=== PATIENT | female | born 1940 | race Two or more races ===

== ENCOUNTER 2022-06-05 16:58 | Emergency (ER) | payer OTHER ==
[~2022-06-05] VITALS: Ht 167.6 cm; Wt 86.2 kg
[~2022-06-05 16:58] MED LIST: ATOR20TA PO; DULO60EC1 PO; ENAL10TA34; ESOM40EC PO; EZET10TA14; EZET1TAB28 PO; FERR-15 PO; ISOS20TA13 PO; LAMO100T PO; LEVO250T3; METF-938 PO; METO25TA PO; PANT40EC; PIOG15TA48 PO; ZOLP5TAB1 PO; [UNRECOGNIZED DRUG - CODE] PO; [UNRECOGNIZED DRUG - CODE] PO
--- NOTE | 2022-06-05 16:59 | NUR ---
1647-PT [facility] 06.
[2022-06-05] MEDS ORDERED: ACETAMINOPHEN EXTRA STRENGTH 500 MG TAB PO ONE ×2 (17:00→18:10)
[2022-06-05 17:01] VITALS: BP 140/66
--- NOTE | 2022-06-05 17:08 | NUR ---
PT TAKEN TO [facility]
--- NOTE | 2022-06-05 17:21 | NUR ---
PT BROUGHT BACK FROM [facility]
--- NOTE | 2022-06-05 17:50 | NUR ---
82YO FEMALE PT BIBA FROM [facility] C/O FALL. PER [facility], PT FELL WHILE GETTING UP FROM CHAIR . UPON THEIR ARRIVAL [facility] REPORTS PT AAOX3 WITH EPISODES OF CONFUSION- AT BASELINE. PT C/O 08/08 HEAD PAIN AND BODY ACHES . NO VISIBLE INJURY NOTED TO HEAD OR BODY. PT DENIES LOC OR SYNCOPE AND STATES OCCASIONAL LOSS OF LEG MOBILITY . PT AMBULATORY USING WHEELCHAIR. DENIES CHEST PAIN , N/V/D OR SOB. PT AAOX3 WITH SOME CONFUSION AND DISORIENTATION DURING ASSESSMENT. RESPIRATIONS EVEN AND UNLABORED. PT ON MONITOR, BED AT LOWEST POSITION, BED RAILS UP X2. HX dm2, htn, hld allergy: erythromycin med: plavix
--- NOTE | 2022-06-05 18:45 | NUR ---
ATTEMPT TO CONTACT FIGUEROA SIDDIQUI X3 . NO ANSWER. MESSAGE LEFT
--- NOTE | 2022-06-05 18:46 | NUR ---
CALLED PERSON TO NOTIFY "KARIN SHOEMAKER". GRANDDAUGHTER STATES PERSON "PASSED" AND STATES SHE HAS NO RELATION TO PT
--- NOTE | 2022-06-05 19:15 | NUR ---
REPORT GIVEN TO SERGOI TAI. ALL QUESTIONS ANSWERED. TRANSFER OF CARE AT THIS TIME
--- NOTE | 2022-06-05 19:34 | NUR ---
pt appears to be resting with eyes cloed, opens to touch. equal rise and fall of chest wall. pt on alarm security or surveillance monitor. all needs met at this time. bed locked in lowest position, side rails x2 for safety.
--- NOTE | 2022-06-05 20:48 | NUR ---
pt is awake and alert. all needs met at this time. bed locked in lowest position. side rails x2 for safety.
--- NOTE | 2022-06-05 22:15 | NUR ---
pt appears to be resting with eyes closed. opens to sound. equal rise and fall of chest wall. pt continues on drapery sewer hand. all needs met at this time. bed locked in lowest position, side rails x2 for safety.
--- NOTE | 2022-06-05 22:18 | NUR ---
pt given iced water per request.
--- NOTE | 2022-06-06 00:40 | NUR ---
pt is awake and alert. pt is talking to self. states "oh im ok". all needs met at this time. bed locked in lowest position, side rails x2 for saftey.
--- NOTE | 2022-06-06 01:59 | NUR ---
pt assisted to rr and back to bed.given a warm blanket.
--- NOTE | 2022-06-06 03:08 | NUR ---
pt is awake and alert, talking to bed 05.
--- NOTE | 2022-06-06 05:51 | NUR ---
pt ambulated to and back to bed.
--- NOTE | 2022-06-06 06:37 | NUR ---
pt is awake and alert, talking to self. all needs met at this time. bed locked in lowest position, side railsx2 for safety.
--- NOTE | 2022-06-06 07:26 | NUR ---
Pt report given to eusebio mims. Transfer of care at this time.
--- NOTE | 2022-06-06 07:28 | NUR ---
report recieved from ABIDA Ward for transfer of care.
--- NOTE | 2022-06-06 07:50 | NUR ---
Patient appears to be resting comfortably in bed. Vital Signs within normal limits. Respirations even and unlabored.
--- NOTE | 2022-06-06 10:08 | NUR ---
Lab at bedside.
[2022-06-06 10:27] LABS: BASOPHILS # (AUTO) 0.1 K/uL (0.00-0.22); BASOPHILS % (AUTO) 1.2 % (0.0-2.0); EOSINOPHILS # (AUTO) 0.1 K/uL (0-0.4); EOSINOPHILS % (AUTO) 1.7 % (0.0-4.0); HEMATOCRIT 35.4 % (36-48); HEMOGLOBIN 11.4 g/dL (12.0-16.0); LYMPHOCYTES # (AUTO) 0.9 K/uL (2.5-16.5); LYMPHOCYTES % (AUTO) 10.5 % (20.5-51.1); MEAN CORPUSCULAR HEMOGLOBIN 28 pg (27-31); MEAN CORPUSCULAR HGB CONC 32 g/dL (33-37); MEAN CORPUSCULAR VOLUME 88.1 fL (80-94); MONOCYTES # (AUTO) 0.4 K/uL (0.8-1.0); MONOCYTES % (AUTO) 4.6 % (1.7-9.3); NEUTROPHILS # (AUTO) 6.7 K/uL (1.8-7.7); PLATELET COUNT (AUTO) 249 K/uL (140-450); RED BLOOD CELL COUNT(AUTO) 4.01 MIL/uL (4.20-5.40); RED CELL DISTRIBUTION WIDTH 13.9 % (11.6-13.7); WHITE BLOOD COUNT (AUTO) 8.1 K/uL (4.8-10.8)
[2022-06-06 11:03] LABS: ALBUMIN 3.4 g/dL (3.4-5.0); ANION GAP 16.1 (8-16); ASPARTATE AMINOTRANSFERASE 25 U/L (15-37); CHLORIDE 109 mmol/L (98-107); CREATININE 1.8 mg/dL (0.6-1.3); GLUCOSE 136 mg/dL (74-106); POTASSIUM 4.1 mmol/L (3.5-5.1); SODIUM SERUM 145 mmol/L (136-145); TOTAL BILIRUBIN 0.8 mg/dL (0.0-1.0); UREA NITROGEN, BLOOD 33 mg/dL (7-18)
--- NOTE | 2022-06-06 14:20 | NUR ---
Pt ate 25% of her lunch
--- NOTE | 2022-06-06 16:40 | NUR ---
ASSISTED PT TO THE RESTROOM.
--- NOTE | 2022-06-06 17:21 | NUR ---
Patient appears to be resting comfortably in bed. Vital Signs within normal limits. Respirations even and unlabored.
[2022-06-06 19:32] VITALS: BP 165/70
--- NOTE | 2022-06-06 19:32 | NUR ---
Patient discharged with v/s stable. Written and verbal after care instructions given and explained. Patient alert, oriented and verbalized understanding of instructions. Ambulatory with steady gait. All questions addressed prior to discharge. ID band removed. Patient advised to follow up with PMD. Opportunity to ask questions provided and answered.
== END 2022-06-06 19:32 | disposition home or self-care (01) ==
LOC: MED 16:58
DX: R53.1 Weakness (principal); J45.909 Unspecified asthma, uncomplicated; I10 Essential (primary) hypertension; E11.9 Type 2 diabetes mellitus without complications; Z79.4 Long term (current) use of insulin; Z79.899 Other long term (current) drug therapy; Z88.1 Allergy status to other antibiotic agents; W18.30XA Fall on same level, unspecified, initial encounter; Y93.89 Activity, other specified; Y92.89 Other specified places as the place of occurrence of the external cause; Y99.8 Other external cause status
CPT/HCPCS: 36415; 70450; 80053; 82140; 85025; 99285

== ENCOUNTER 2022-06-07 15:41 | Inpatient (IN) | payer OTHER ==
[~2022-06-07] VITALS: Ht 167.6 cm; Wt 85.3 kg
[~2022-06-07 15:41] MED LIST changes: -EZET1TAB28 PO; +PIOG-4 PO; -PIOG15TA48 PO; +[UNRECOGNIZED DRUG - CODE] PO
[2022-06-07 15:42] VITALS: BP 165/81
--- NOTE | 2022-06-07 15:54 | NUR ---
DR BHAKTA AT BEDSIDE EVALUATING PT
[2022-06-07] MEDS ORDERED: NACL 0.9% 1,000 ML IV ONE (16:00)
[2022-06-07 16:20] LABS: BASOPHILS # (AUTO) 0.1 K/uL (0.00-0.22); BASOPHILS % (AUTO) 0.8 % (0.0-2.0); EOSINOPHILS # (AUTO) 0.1 K/uL (0-0.4); EOSINOPHILS % (AUTO) 0.6 % (0.0-4.0); HEMATOCRIT 34.7 % (36-48); HEMOGLOBIN 11.2 g/dL (12.0-16.0); LYMPHOCYTES % (AUTO) 10.1 % (20.5-51.1); MEAN CORPUSCULAR HEMOGLOBIN 28 pg (27-31); MEAN CORPUSCULAR HGB CONC 32 g/dL (33-37); MEAN CORPUSCULAR VOLUME 87.9 fL (80-94); MONOCYTES # (AUTO) 0.4 K/uL (0.8-1.0); MONOCYTES % (AUTO) 4.6 % (1.7-9.3); NEUTROPHILS # (AUTO) 8.1 K/uL (1.8-7.7); NEUTROPHILS % (AUTO) 83.9 % (42.2-75.2); PLATELET COUNT (AUTO) 263 K/uL (140-450); RED BLOOD CELL COUNT(AUTO) 3.95 MIL/uL (4.20-5.40); WHITE BLOOD COUNT (AUTO) 9.6 K/uL (4.8-10.8)
[2022-06-07 16:36] LABS: ALBUMIN 3.4 g/dL (3.4-5.0); ANION GAP 14.7 (8-16); ASPARTATE AMINOTRANSFERASE 19 U/L (15-37); CARBON DIOXIDE 24.8 mmol/L (21-32); CHLORIDE 110 mmol/L (98-107); CREATININE 1.8 mg/dL (0.6-1.3); GLUCOSE 131 mg/dL (74-106); POTASSIUM 4.5 mmol/L (3.5-5.1); SODIUM SERUM 145 mmol/L (136-145); TOTAL BILIRUBIN 0.6 mg/dL (0.0-1.0); UREA NITROGEN, BLOOD 33 mg/dL (7-18)
--- NOTE | 2022-06-07 17:02 | NUR ---
82YR OLD FEMALE BIB EMS C/O ALTERED MENTAL STATUS. PT WAS SEEN HERE YESTERDAY AND DC. TODAY, MENTAL STATUS HAS GOTTEN WORSE. PT IS A&OX1. RESP EVEN AND UNLABORED. ON DATA PROCESSING CLERK. HOB ELEVATED. BED AT LOWEST POSITION. NKDA HTN DEMENTIA
--- NOTE | 2022-06-07 17:20 | NUR ---
PT WILL BE ADMITTED TO HOSPITAL
--- NOTE | 2022-06-07 19:30 | NUR ---
PT APPEARS TO BE RESTING WITH EQUAL RISE AND FALL OF DEB WALL. ALL NEEDS MET AT THIS TIME.
--- NOTE | 2022-06-07 20:05 | NUR ---
PT ASSISTED TO RR
--- NOTE | 2022-06-07 20:09 | NUR ---
PT ASSISTED BACK TO BED. PT BACK ON CITY ADMINISTRATOR.
--- NOTE | 2022-06-07 20:10 | NUR ---
URINE COLLECTED AND TKEN TO LAB.
[2022-06-07 20:15] LABS: APPEARANCE,URINE CLOUDY (CLEAR); BILIRUBIN,URINE NEGATIVE (NEGATIVE); BLOOD, URINE TRACE-I (NEGATIVE); COLOR,URINE YELLOW (YELLOW); LEUKOCYTE ESTERASE ,URINE 3+ (NEGATIVE); NITRITE, URINE POSITIVE (NEGATIVE); UGLUCOSE NEGATIVE (NEGATIVE)
[2022-06-07 20:30] LABS: RBC,URINE 0-5 /HPF (0-5)
[2022-06-07 20:31] LABS: OTHER CASTS, URINE None Seen /LPF (None Seen)
--- NOTE | 2022-06-07 20:46 | NUR ---
CALLED ALAN TAI FOR REPORT. STATED TO PLEASE CALL IN 10 MINS.
[2022-06-07] MEDS ORDERED: ONDANSETRON 4 MG/2 ML VIAL IM/IVP PRN (21:30)
[2022-06-07] MEDS ORDERED: ACETAMINOPHEN 325 MG TAB PO PRN (21:30)
[2022-06-07] MEDS ORDERED: DOCUSATE SODIUM 100 MG GELCAP PO PRN (21:30)
[2022-06-07] MEDS ORDERED: NACL 0.9% 1,000 ML IV SCH (21:30)
[2022-06-07] MEDS ORDERED: guaiFENesin DM 200/20 MG-10 ML 10 ML UDC PO PRN (21:30)
[2022-06-07] MEDS ORDERED: POTASSIUM CHLORIDE 10 MEQ TABER PO PRN (21:30)
--- NOTE | 2022-06-07 21:41 | NUR ---
ALAN MADE AWARE ABOUT PT COMING OVER.
--- NOTE | 2022-06-07 21:43 | NUR ---
Patient will be admitted to care of . Admited to TELE. Will go to room 110A. Belongings list completed. Report to ABIDA PHILLIPS.
--- NOTE | 2022-06-07 22:00 | NUR ---
RECEIVED PATIENT FROM ED. AWAKE ALERT AND ORIENTED X1. VSS. AFEBRILE. RESPIRATIONS EVEN AND UNLABORED. NO ACUTE DISTRESS NOTED. PATIENT CONFUSED AND UNABLE TO ANSWER ADMISSION [id number]. ATTEMPTED TO CALL FAMILY MEMBER KARIN SHOEMAKER AT [phone], PHONE DISCONNECTED. ASSESSMENT COMPLETE. WILL CONTINUE TO MONITOR FOR SAFETY. Linden STOREY RN.
[2022-06-07 22:01] LABS: CHOL/HDL RATIO 3.3 (1-4.5); FREE T4 (FREE THYROXINE) 1.06 ng/dL (0.76-1.46); MAGNESIUM 2.5 mg/dL (1.8-2.4); PHOSPHORUS 4.1 mg/dL (2.5-4.9); THYROID STIMULATING HORMONE 0.39 uIU/mL (0.34-3.74)
[2022-06-07 22:04] LABS: PROTHROMBIN TIME 10.7 secs (10.8-13.4)
[2022-06-07 22:10] VITALS: BP 157/71
[2022-06-07] MEDS ORDERED: cefTRIAXone 1,000 MG VIAL ONE (22:19)
[2022-06-07] MEDS: HYDROcodone/APAP 7.5/325 MG 1 TAB PO PRN (23:33)
[2022-06-08 04:19] VITALS: BP 155/79
[2022-06-08] MEDS: HYDROcodone/APAP 7.5/325 MG 1 TAB PO PRN ×2 (04:44→20:48)
[2022-06-08 07:02] LABS: BASOPHILS # (AUTO) 0.1 K/uL (0.00-0.22); BASOPHILS % (AUTO) 1.1 % (0.0-2.0); EOSINOPHILS # (AUTO) 0.3 K/uL (0-0.4); EOSINOPHILS % (AUTO) 3.7 % (0.0-4.0); HEMATOCRIT 33.1 % (36-48); HEMOGLOBIN 10.6 g/dL (12.0-16.0); LYMPHOCYTES # (AUTO) 1.6 K/uL (2.5-16.5); LYMPHOCYTES % (AUTO) 20.3 % (20.5-51.1); MEAN CORPUSCULAR HEMOGLOBIN 28 pg (27-31); MEAN CORPUSCULAR HGB CONC 32 g/dL (33-37); MEAN CORPUSCULAR VOLUME 88.4 fL (80-94); MONOCYTES # (AUTO) 0.7 K/uL (0.8-1.0); MONOCYTES % (AUTO) 8.6 % (1.7-9.3); NEUTROPHILS # (AUTO) 5.2 K/uL (1.8-7.7); NEUTROPHILS % (AUTO) 66.3 % (42.2-75.2); PLATELET COUNT (AUTO) 239 K/uL (140-450); RED BLOOD CELL COUNT(AUTO) 3.74 MIL/uL (4.20-5.40); WHITE BLOOD COUNT (AUTO) 7.9 K/uL (4.8-10.8)
--- NOTE | 2022-06-08 07:30 | NUR ---
RECEIVED REPORT FROM CAREER TECHNOLOGY TEACHER RN FOR CONTINUITY OF CARE
[2022-06-08 07:44] LABS: ANION GAP 8.8 (8-16); CARBON DIOXIDE 28.9 mmol/L (21-32); CHLORIDE 115 mmol/L (98-107); CREATININE 1.9 mg/dL (0.6-1.3); GLUCOSE 115 mg/dL (74-106); POTASSIUM 4.7 mmol/L (3.5-5.1); SODIUM SERUM 148 mmol/L (136-145); UREA NITROGEN, BLOOD 30 mg/dL (7-18)
[2022-06-08 08:00] VITALS: BP 159/65
[2022-06-08] MEDS: PANTOPRAZOLE 40 MG TABEC PO SCH (08:40)
--- NOTE | 2022-06-08 10:34 | NUR ---
PATIENT HAS BEEN SCREENED AND CATEGORIZED HIGH NUTRITION RISK. PATIENT WILL BE SEEN WITHIN 1-2 DAYS OF ADMISSION. T[address]SO ROS[address]
[2022-06-08] MEDS: NACL 0.45% 1,000 ML IV SCH (11:08)
[2022-06-08 12:00] VITALS: BP 144/64
--- NOTE | 2022-06-08 12:04 | NUR ---
SW ATTEMPTED TO MEET PATIENT AT BEDSIDE TO COMPLETE DC ASSESSMENT HOWEVER, PATIENT STRUGGLED WITH RECALLING INFORMATION NEEDED. PATIENT REPORTS THAT EMERGENCY CONTACT ON FILE RECENTLY PASSED. PATIENT STRUGGLED TO IDENTIFY EMERGENCY CONTACT AND REPORTED THAT SHE HAS A CAREGIVER. PATIENT UNABLE TO RECALL CAREGIVERS NAME HOWEVER, REPORTS THAT CAREGIVER SHOULD BE COMING TO HOSPITAL FOR VISIT. SW SPOKE TO NURSE SWEENEY WHO REPORTS NO VISITORS . SW REQUESTED NURSE CALL WHEN VISITOR AT BEDSIDE, NURSE AGREED.
[2022-06-08] MEDS ORDERED: LABETALOL 100 MG TAB PO SCH (13:00)
[2022-06-08] MEDS ORDERED: hydrALAZINE 25 MG TAB PO PRN (14:20)
--- NOTE | 2022-06-08 15:13 | NUR ---
06/08/22 RD INITIAL ASSESSMENT COMPLETED PLEASE REFER TO NUTRITION ASSESSMENT UNDER CARE ACTIVITY FOR ESTIMATED NUTRITIONAL NEEDS. 1. CONTINUE MECHANICAL SOFT DIET TOLERATED 2. MONITOR NUTRITION-RELATED LAB VALUES 3. MONITOR PO INTAKE 4. CONSULT RD PRN 5. RD TO FOLLOW-UP 3-5 DAYS, MODERATE RISK TIRSO ROSADO RD
--- NOTE | 2022-06-08 15:15 | NUR ---
PT'S CAREGIVER CALLED, SCOOTER COLLIN [phone]. PER JANUARY, PT IS DNR, WILL NOTIFY MD
--- NOTE | 2022-06-08 15:32 | NUR ---
PHYSICAL THERAPY NOTE: MULTIPLE ATTEMPTS TO SEE PATIENT FOR PHYSICAL THERAPY EVALUATION HOWEVER PATIENT VERY AGITATED AND IRRITABLE REFUSING EVALUATION. PATIENT YELLS "I AM NOT GOING TO GET UP WITH YOU!" SHE BANGS ON THE TABLE. VERY CONFUSED AT THIS TIME; ORIENTED TO SELF. USES PROFANITY AND YELLS WHILE HITTING THE TABLE. WILL ATTEMPT PHYSICAL THERAPY EVALUATION TOMORROW. CM PRESENT ATTEMPTING TO CONVINCE PATIENT HOWEVER CONTINUES REFUSAL WITH IRRITABILITY.
--- NOTE | 2022-06-08 15:54 | NUR ---
DC PLANNING: THE PATIENT WAS BIBA WITH C/O ALOC, H/O DM, HTN AND BIPOLAR DISEASE. NA+ 145, CR 1.8, UA+ FOR NITRITES BLOOD, WBC'S AND BACTERIA. ORDER FOR NEPHROLOGY CONSULT, BLOOD AND URINE CULTURES. ON [facility], IVF'S. JUDIT SPOKE WITH THE PATIENTS IHSS WORKER AND POA SCOOTER POLANCO ([phone]), THE PATIENT HAS A FINANCIAL POA, HEMA BRAR ([phone]). SCOOTER HAS 30 HOURS A WEEK AND HELPS THE PATIENT MONDAY THROUGH MONDAY. THE PATIENT IS ABLE TO AMBULATE INDEPENDENTLY BUT USES HER FWW WHEN SHE'S OUTSIDE. ALSO HAS DME OF A WC AND IS USUALLY GOOD NATURED AND AOX4. SCOOTER STATES THAT SINCE YESTERDAY THE PATIENT HAS BEEN IRRITABLE AND AGGRESSIVE AND THAT SHE WAS FOUND STANDING IN THE STREET BY PD. JUDIT, SW AND P.T. ATTEMPTED TO SPEAK WITH THE PATIENT AT BEDSIDE, SHE WAS HOSTILE AND ORIENTED TO PERSON ONLY. SHE KNEW WHO SCOOTER WAS BUT DID NOT WANT TO ENGAGE AND WAS EASILY ANGERED. SHE WAS ALSO SOMEWHAT APHASIC AND UNABLE TO COMPLETE SENTENCES. JUDIT SPOKE WITH HER INSURANCE CM TO SEE IF THERE WERE ANY OTHER CONTACTS OR FAMILY, SCOOTER'S NUMBER WAS THE ONLY ONE ON FILE. THE PATIENT REFUSED TO WORK WITH [employer] TENTATIVE PLAN IS FOR THE PATIENT TO GO TO SNF, UNCLEAR IF SHE WILL BE SKILLED OR LONG-TERM. JUDIT WILL FOLLOW. Addendum: 06/09/22 at 1051 by Hawa Spain CM DC PLANNING: CLINICAL REVIEW GIVEN TO BATSHEVA JOHNSON [facility]. FOR PATIENT TO QUALIFY FOR SNF FOR IV ABX SHE NEEDS TO HAVE HIGH FREQUENCY OF Q 4-6 HOURS ADMINISTRATION. PATIENT GIVEN HALDOL YESTERDAY, NURSING STATES SHE IS AO X 2, NOT APHASIC TODAY, WITH PERIODIC AGGRESSIVE BEHAVIOR, DC'D HER IV 6 TIMES YESTERDAY. HER CAREGIVER SCOOTER WILL BE HERE TODAY WITH MORE INFORMATION ON MEDICATIONS, WILL HAVE P.T. RETRY EVALUATION FOR SNF QUALIFIER. ENDORSED TO TO SPEAK WITH THE PATIENTS FINANCIAL POA TO DISCUSS ALTERNATE LIVING SITUATION. CM WILL FOLLOW. Addendum: 06/10/22 at 1250 by Hawa Spain CM DC PLANNING: THE PATIENT DOES NOT QUALIFY FOR LONG-TERM CARE WITH IE PER THEIR CM CASS ([phone]) BUT SHE WILL TRY TO WORK ON OTHER OPTIONS SUCH THE [employer] [facility]. CM FAXED ORDERS AND PACKET TO [facility] TO SEE IF THEY WILL APPROVE THE PATIENT FOR SKILLED LEVEL AT A SNF. CM WILL FOLLOW. Addendum: 06/10/22 at 1350 by Hawa Spain CM DC PLANNING: PER BATSHEVA AT [facility], PATIENT MEETS SKILLED CRITERIA, NEEDS FINAL APPROVAL FROM WHIPPED TOPPING MIXER. PATIENT REFERRED TO [facility], CM SPOKE WITH DARRIUS WHO GET BACK TO . PATIENT APPROVED BY [facility], AUTHORIZATION FOR [facility] ([phone]) FROM [facility] IS [phone], TRANSPORT WILL NEED TO BE ARRANGED ONCE PATIENT IS DC'D. CM WILL FOLLOW.
[2022-06-08 16:00] VITALS: BP 149/60
--- NOTE | 2022-06-08 16:10 | NUR ---
PT PULLED OUT IV, BECOMING AGITATED. NOTIFIED DR ALEJANDRO. ORDERED HALDOL 5MG IM ONCE
[2022-06-08] MEDS ORDERED: HALOPERIDOL IM 5 MG/ML VIAL ONE (16:14)
[2022-06-08] MEDS ORDERED: HALOPERIDOL IM 5 MG/ML VIAL IM SCH (16:15)
--- NOTE | 2022-06-08 16:48 | NUR ---
IV REINSERTED TO LAC 22G
[2022-06-08 20:00] VITALS: BP 156/78
--- NOTE | 2022-06-08 20:00 | NUR ---
RECEIVED REPORT FROM MORNING SHIFT NURSE. PT IS AOX1 AND KNOWS SELF PT IS ON ROOM AIR AND ON REGULAR DIET. PT HAS LEFT HAND GAUGE 22 RUNNING WITH NS AT 60ML/HR. RESPIRATION ARE EVEN AND UNLABORED. NO S/S OF DISTRESS NOTED. ALL SAFETY MEASURES IMPLEMENTED. BED WHEELS ON LOCKED, BED IN LOW POSITION AND IN ALARM. CALL LIGHT WITHIN REACH.
[2022-06-08] MEDS: DULoxetine 30 MG CAPDR PO SCH (20:46)
--- NOTE | 2022-06-08 20:46 | NUR ---
SCHEDULE MEDICATION WAS GIVEN TO PT PER MD ORDERED. PT TOLERATED IT WELL. ALL SAFETY MEASURES IMPLEMENTED. BED WHEELS ON LOCKED, BED IN LOW POSITION AND IN ALARM. CALL LIGHT WITHIN REACH.
--- NOTE | 2022-06-08 20:48 | NUR ---
PT REQUESTED FOR PAIN MEDICATION FOR LEG PAIN. PRN PAIN MEDICATION WAS GIVEN PER MD ORDERED. ALL SAFETY MEASURES IMPLEMENTED. BED WHEELS ON LOCKED, BED IN LOW POSITION AND IN ALARM. CALL LIGHT WITHIN REACH.
[2022-06-08] MEDS ORDERED: ZOLPIDEM 5 MG TAB PO SCH (21:00)
[2022-06-08] MEDS: ZOLPIDEM 5 MG TAB PO PRN (22:12)
--- NOTE | 2022-06-08 22:18 | NUR ---
PT REQUESTED FOR SLEEPING MEDICATION. PRN SLEEP MEDICATION WAS GIVEN PER MD ORDER. ALL SAFETY MEASURES IMPLEMENTED. BED WHEELS ON LOCKED, BED IN LOW POSITION AND IN ALARM. CALL LIGHT WITHIN REACH.
--- NOTE | 2022-06-08 23:00 | NUR ---
PT PULLED OUR IV. NEW IV WAS INSERTED TO PT ON RIGHT FOREARM GAUGE 22. PT IV IS NOW INTACT, PATENT AND COVERED WITH BANDAGE TO SECURED THE IV. ALL SAFETY MEASURES IMPLEMENTED. BED WHEELS ON LOCKED, BED IN LOW POSITION AND IN ALARM. CALL LIGHT WITHIN REACH.
[2022-06-09] VITALS: BP 138/76
--- NOTE | 2022-06-09 01:00 | NUR ---
PT IS ON SLEEP. RESPIRATION ARE EVEN AND UNLABORED NOTED. NO S/S OF RESPIRATORY DISTRESS NOTED. ALL SAFETY MEASURES IMPLEMENTED. BED WHEELS ON LOCKED. BED IN LOW POSITION. CALL LIGHT WITHIN REACH.
[2022-06-09] MEDS: NACL 0.45% 1,000 ML IV SCH ×2 (01:27→16:20)
--- NOTE | 2022-06-09 03:30 | NUR ---
PT PULLED OUR IV. NEW IV WAS INSERTED TO PT ON LEFT FOREARM GAUGE 24. PT IV IS NOW INTACT, PATENT AND COVERED WITH BANDAGE TO SECURED THE IV. ALL SAFETY MEASURES IMPLEMENTED. BED WHEELS ON LOCKED, BED IN LOW POSITION AND IN ALARM. CALL LIGHT WITHIN REACH.
[2022-06-09 04:00] VITALS: BP 149/79
--- NOTE | 2022-06-09 06:15 | NUR ---
MORNING CARE WAS DONE TO PT. CHANGED LINEN, SOCKS, GOWN AND DIAPER. ALL SAFETY MEASURES IMPLEMENTED. BED WHEELS ON LOCKED. BED IN LOW POSITION. CALL LIGHT WITHIN REACH.
[2022-06-09 07:07] LABS: T4 (THYROXINE) 8.4 ug/dL (4.5-12.0)
--- NOTE | 2022-06-09 07:11 | NUR ---
PT IS STABLE. ENDORSED PT TO MORNING SHIFT NURSE FOR CONTINUITY OF CARE.
[2022-06-09 07:14] LABS: BASOPHILS # (AUTO) 0.1 K/uL (0.00-0.22); BASOPHILS % (AUTO) 1.4 % (0.0-2.0); EOSINOPHILS # (AUTO) 0.3 K/uL (0-0.4); EOSINOPHILS % (AUTO) 3.5 % (0.0-4.0); HEMATOCRIT 31.9 % (36-48); HEMOGLOBIN 10.4 g/dL (12.0-16.0); LYMPHOCYTES # (AUTO) 1.7 K/uL (2.5-16.5); LYMPHOCYTES % (AUTO) 18.6 % (20.5-51.1); MEAN CORPUSCULAR HEMOGLOBIN 29 pg (27-31); MEAN CORPUSCULAR HGB CONC 33 g/dL (33-37); MONOCYTES # (AUTO) 0.5 K/uL (0.8-1.0); MONOCYTES % (AUTO) 5.6 % (1.7-9.3); NEUTROPHILS # (AUTO) 6.6 K/uL (1.8-7.7); NEUTROPHILS % (AUTO) 70.9 % (42.2-75.2); PLATELET COUNT (AUTO) 206 K/uL (140-450); RED BLOOD CELL COUNT(AUTO) 3.58 MIL/uL (4.20-5.40); RED CELL DISTRIBUTION WIDTH 13.8 % (11.6-13.7); WHITE BLOOD COUNT (AUTO) 9.3 K/uL (4.8-10.8)
[2022-06-09 07:30] LABS: ANION GAP 11.5 (8-16); CARBON DIOXIDE 25.3 mmol/L (21-32); CHLORIDE 112 mmol/L (98-107); CREATININE 1.7 mg/dL (0.6-1.3); GLUCOSE 111 mg/dL (74-106); POTASSIUM 3.8 mmol/L (3.5-5.1); SODIUM SERUM 145 mmol/L (136-145); UREA NITROGEN, BLOOD 25 mg/dL (7-18)
--- NOTE | 2022-06-09 07:30 | NUR ---
RECEIVED REPORT FROM DOT COMPLIANCE COORDINATOR NURSE FOR CONTINUITY OF CARE, POC DISCUSSED. PT RESTING IN BED, WITH A LEFT FOREARM 24G RUNNING D5 .5 NS AT 60CC. FALL RISK PROTOCOL IN PLACE, ALARM ON. EDUCATED PT ON USING CALL LIGHT AND NOT GETTING OUT OF BED. ALL SAFETY MEASURES IN PLACE, CALL LIGHT WITHIN REACH. WILL CONTINUE TO MONITOR.
[2022-06-09 08:00] VITALS: BP 155/82
[2022-06-09] MEDS: ATORVASTATIN 20 MG TAB PO SCH (08:12)
[2022-06-09] MEDS: FERROUS SULFATE 325 MG TABEC PO SCH (08:12)
[2022-06-09] MEDS: PANTOPRAZOLE 40 MG TABEC PO SCH (08:12)
[2022-06-09] MEDS: METOPROLOL 25 MG TAB PO SCH (08:13)
--- NOTE | 2022-06-09 08:30 | NUR ---
DAMASO MEDICATION ADMINISTERED PER MD ORDER, PT REPORTS PAIN, WHEN OFFERED PAIN MEDICATION PT REFUSED, STATED "OT MAKED ME GO CRAZY LAST TIME", EDUCATED ON WANTING TO HELP WITH PAIN, OFFERED ICE PACK, PT REFUSED. PT EDUCATED ON MEDICATION, PT AGREED TO MEDICATION AND SWALLOWED WITH NO COMPLICATIONS. IV IS PATENT AND INTACT. CLEAR LUNG SOUNDS, EVEN BREATHING. ACTIVE BOWEL SOUNDS. NO EDEMA NOTED. TENDER ABDOMEN. PT A&OX4, HOWEVER, FREQUENT EPISODES OF CONFUSION. FALL PROTOCOL IN PLACE, ALL OTHER SAFETY MEASURES IN PLACE. CALL LIGHT WITHIN REACH. EDUCATED ON HOW TO USE IT. WILL CONTINUE TO MONITOR.
[2022-06-09] MEDS ORDERED: NIFEdipine 30 MG TABER PO SCH (09:00)
[2022-06-09] MEDS ORDERED: ENALAPRIL 10 MG TAB PO SCH (09:00)
--- NOTE | 2022-06-09 09:00 | NUR ---
IV ALARMING, ASSESSED, NO REDNESS, SWELLING OR INFILTRATION. FLUSHED WITH BLOOD RETURN. RESTARTED IV FLUIDS. PT SITTING UP IN BED EATING BREAKFAST.
--- NOTE | 2022-06-09 10:25 | NUR ---
sw attempted to meet with patient at bedside to complete assessment, however, patient struggled to engage and had difficulty recalling information. sw spoke with cm to gather collateral information as cm spoke with [facility] caregiver, rissa north. cm confirmed patient resides alone at the address listed. CM identified rissa north as emergency contact and dpoa and valdo lauren, , as financial dpoa. pt has limited family support. pt's ss worker allotted 30hrs/week.patient has dx of bipolar d/o. patient is ambulatory with dme assistance;fww and wheelchair. caregiver to visit pt in hospital on 06/10/22 and provide copies of dpoa for patient.Cm working on identifying snf or b&c placement for patient. sw to follow Addendum: 06/10/22 at 1422 by Cristina Pepe SS mateo met with caregiver, rissa north, to discuss alternative housing options. mateo provided caregiver with board and care resources, low cost housing options, and assisted living resources. sw encouraged caregiver to discuss with financial dpoa appropriate living options. caregiver was accepting of resources and reported she would discuss with financial dpoa. caregiver notified that cm is working on identifying snf placement. mateo outreached to financial dpoa, valdo, to provide update on patient and alternative housing resources. mateo notified financial dpoa that cm was working on short term snf placement. Valdo was encouraged to speak with caregiver to identify appropriate care for patient , as snf is short term. Valdo aware that caregiver was provided resources on alternative housing options. Addendum: 06/10/22 at 1635 by Cristina JOY MATEO NOTIFIED CAREGIVER THAT PT WAS ACCEPTED TO [facility] FOR SKILLED CARE. SW ENCOURAGED CAREGIVER TO UTILIZE RESOURCES SNF STAY IS SHORT TERM. CAREGIVER ACKNOWLEDGED AND REPORTED SHE WOULD MAKE EFFORTS IN FINDING APPROPRIATE NEWSPAPER MANAGING EDITOR HOUSING FOR PT. Addendum: 06/13/22 at 1244 by Cristina JOY MATEO OUTREACHED TO PATIENTS CAREGIVER TO PROVIDE UPDATE ON PATIENTS SNF CARE. MATEO EXPLAINED TO CAREGIVER THAT PATIENT NO LONGER MEETS CRITERIA FOR SNF CARE HOWEVER, INSURANCE WILL APPROVE HH. CAREGIVER UNDERSTANDS. SW ENCOURAGED CAREGIVER TO UTILIZE RESOURCES TO ASSIST WITH IDENTIFYING APPROPRIATE NEWSPAPER MANAGING EDITOR PLACEMENT.
--- NOTE | 2022-06-09 10:33 | NUR ---
ROUNDED ON PT, PT IS RESTING IN BED WITH IV RUNNING. NO S/S OF DISTRESS. ALL SAFETY MEASURES IN PLACE, CALL LIGHT WITHIN REACH. WILL CONTINUE TO MONITOR.
[2022-06-09 12:00] VITALS: BP 151/74
--- NOTE | 2022-06-09 13:06 | NUR ---
P.T. NOTES P.T. EVAL COMPLETED; REFER TO EVAL FOR DETAILS.
[2022-06-09 16:00] VITALS: BP 159/85
--- NOTE | 2022-06-09 18:27 | NUR ---
BLADDER SCAN COMPLETED AT ROUGHLY 1530 PER MD ORDER, 149ML NOTED. MD STATED NO NEED FOR AGGARWAL SINCE IT IS NOT GREATER THAN 200. MD ORDERED Q12H BLADDER SCAN, NOTIFY DR. MCKINNEY IF BLADDER IS GREATER THAN 200ML FOR ORDER FOR POSSIBLE AGGARWAL CATH INSERTION. STATED ONLY NEED TO DO THIS FOR 2 DAYS. ADDITIONAL ORDER PLACED. PT WAS CLEANED UP AND PLACED IN A NEW DIAPER, NEW LINENS AND GOWN PROVIDED. ALL SAFETY MEASURES IN PLACE, EDUCATED ON IMPORTANCE OF STAYING IN BED FOR RISK OF INJURY. REENFORCEMENT NEEDED. CALL LIGHT WITHIN REACH. WILL CONTINUE TO MONITOR.
--- NOTE | 2022-06-09 18:53 | NUR ---
PT STABLE, WILL BE ENDORSED TO CLINICAL UNIT EDUCATOR NURSE FOR CONTINUITY OF CARE.
[2022-06-09 20:00] VITALS: BP 164/76
[2022-06-09] MEDS: DULoxetine 30 MG CAPDR PO SCH (21:52)
[2022-06-10 04:00] VITALS: BP 178/92
--- NOTE | 2022-06-10 04:03 | NUR ---
URINARY BLADDER SCAN POST VOID RESIDUAL SHOWS 49 MILLILITERS OF VOLUME. BENIGNO BARTON RN
[2022-06-10] MEDS: NACL 0.45% 1,000 ML IV SCH ×2 (04:58→20:07)
--- NOTE | 2022-06-10 07:20 | NUR ---
SBAR REPORT RECEIVED FROM NIGHT RN, ALL CARES ASSUMED. PT AWAKE, ALERT. PT LAYING IN BED. BED IN LOW, LOCKED POSITION.
[2022-06-10 07:28] LABS: BASOPHILS # (AUTO) 0.1 K/uL (0.00-0.22); BASOPHILS % (AUTO) 1.3 % (0.0-2.0); EOSINOPHILS # (AUTO) 0.2 K/uL (0-0.4); HEMATOCRIT 31.7 % (36-48); HEMOGLOBIN 10.5 g/dL (12.0-16.0); LYMPHOCYTES # (AUTO) 1.3 K/uL (2.5-16.5); LYMPHOCYTES % (AUTO) 12.6 % (20.5-51.1); MEAN CORPUSCULAR HEMOGLOBIN 29 pg (27-31); MEAN CORPUSCULAR HGB CONC 33 g/dL (33-37); MEAN CORPUSCULAR VOLUME 87.8 fL (80-94); MONOCYTES # (AUTO) 0.7 K/uL (0.8-1.0); MONOCYTES % (AUTO) 6.3 % (1.7-9.3); NEUTROPHILS # (AUTO) 8.3 K/uL (1.8-7.7); NEUTROPHILS % (AUTO) 77.8 % (42.2-75.2); PLATELET COUNT (AUTO) 200 K/uL (140-450); RED BLOOD CELL COUNT(AUTO) 3.61 MIL/uL (4.20-5.40); RED CELL DISTRIBUTION WIDTH 13.4 % (11.6-13.7); WHITE BLOOD COUNT (AUTO) 10.6 K/uL (4.8-10.8)
[2022-06-10 07:36] LABS: ANION GAP 13.2 (8-16); CARBON DIOXIDE 24.7 mmol/L (21-32); CHLORIDE 109 mmol/L (98-107); CREATININE 1.7 mg/dL (0.6-1.3); GLUCOSE 145 mg/dL (74-106); POTASSIUM 3.9 mmol/L (3.5-5.1); SODIUM SERUM 143 mmol/L (136-145); UREA NITROGEN, BLOOD 22 mg/dL (7-18)
[2022-06-10 08:00] VITALS: BP 153/73
[2022-06-10] MEDS: FERROUS SULFATE 325 MG TABEC PO SCH (08:49)
[2022-06-10] MEDS: ATORVASTATIN 20 MG TAB PO SCH (08:49)
[2022-06-10] MEDS: METOPROLOL 25 MG TAB PO SCH (08:50)
[2022-06-10] MEDS: amLODIPine 5 MG TAB PO SCH (08:50)
[2022-06-10] MEDS: PANTOPRAZOLE 40 MG TABEC PO SCH (08:51)
[2022-06-10] MEDS ORDERED: OLAN2.5T1 PO (10:55)
--- NOTE | 2022-06-10 12:10 | NUR ---
PHYSICAL THERAPY CO-SIGN The Physical Therapy Progress Notes documented by Assistant Community Manager have been reviewed. Reviewed/Co-Signed by: Christine Dumont Documentation Done by: RAHUL DOWNS PTA Addendum: 06/10/22 at 1211 by Christine Dumont PT Amended: Links added.
--- NOTE | 2022-06-10 13:12 | NUR ---
RECEIVED REPORT FROM [facility] NURSE ALLISON FOR CONTINUITY OF CARE. PT IN STABLE CONDITION. PT IS CURRENTLY AWAKE. PT BREATHING EVEN, REGULAR, AND UNLABORED ON ROOM AIR. PT INCONTINENT OF THE BOWEL AND BLADDER. PT HAS A HX OF FREQUENT FALLS, AND IS DEEMED HIGH FALL RISK. SKIN INTACT, 24G IV ON LEFT FOREARM. PT DENIES PAIN AT THIS TIME.
--- NOTE | 2022-06-10 13:50 | NUR ---
PT ATTEMPTED TO GET OUT OF BED AND STATING SHE WAS LOOKING FOR "JANUARY AND HEMA THE PUPPY". PT WAS REPEATEDLY REORIENTATED TO PLACE AND SITUATION. WAS ABLE TO HAVE PT STAY SITTING IN BED WITHOUT RISK OF FALL.
--- NOTE | 2022-06-10 14:07 | NUR ---
PT BEGAN CRYING DUE TO VOIDING ON SELF. URINE WAS ON FLOOR BY BEDSIDE. BEDBATH GIVEN, LINEN CHANGE PERFORMED. PT NOW ON DIAPER. PT IN STABLE CONDITION, NO SIGNS OF DISTRESS NOTED.
--- NOTE | 2022-06-10 15:00 | NUR ---
PLACED BEDSIDE COMMODE FOR PT, PT ABLE TO SIT INDEPENDENTLY. NO SIGNS OF PAIN OR DISTRESS NOTED AT THIS TIME.
[2022-06-10 16:00] VITALS: BP 112/70
--- NOTE | 2022-06-10 16:50 | NUR ---
PT'S PSYCH MD CALLED PERTAINING PT'S HOME MEDICATIONS. NO NEW UPDATES OR ORDERS GIVEN.
--- NOTE | 2022-06-10 17:00 | NUR ---
PT DENIES PAIN AT THIS TIME, NO SIGNS OF PAIN OR DISTRESS NOTED.
--- NOTE | 2022-06-10 19:20 | NUR ---
ENDORSED PT TO NIGHTSAKFT NURSE PELAEZ FOR CONTINUITY OF CARE. PT IN STABLE CONDITION.
[2022-06-10 20:00] VITALS: BP 178/87
[2022-06-10] MEDS: OLANZapine 5 MG TAB PO SCH (21:05)
[2022-06-10] MEDS: DULoxetine 30 MG CAPDR PO SCH (21:05)
[2022-06-11 07:30] LABS: BASOPHILS # (AUTO) 0.1 K/uL (0.00-0.22); BASOPHILS % (AUTO) 1.1 % (0.0-2.0); EOSINOPHILS # (AUTO) 0.3 K/uL (0-0.4); HEMATOCRIT 32.2 % (36-48); HEMOGLOBIN 10.5 g/dL (12.0-16.0); LYMPHOCYTES # (AUTO) 1.9 K/uL (2.5-16.5); LYMPHOCYTES % (AUTO) 18.3 % (20.5-51.1); MEAN CORPUSCULAR HEMOGLOBIN 29 pg (27-31); MEAN CORPUSCULAR HGB CONC 33 g/dL (33-37); MEAN CORPUSCULAR VOLUME 88.6 fL (80-94); MONOCYTES # (AUTO) 0.7 K/uL (0.8-1.0); NEUTROPHILS # (AUTO) 7.1 K/uL (1.8-7.7); NEUTROPHILS % (AUTO) 70.6 % (42.2-75.2); PLATELET COUNT (AUTO) 218 K/uL (140-450); RED BLOOD CELL COUNT(AUTO) 3.63 MIL/uL (4.20-5.40); WHITE BLOOD COUNT (AUTO) 10.1 K/uL (4.8-10.8)
--- NOTE | 2022-06-11 07:32 | NUR ---
SBAR REPORT RECEIVED FROM BENIGNO TAI, ALL CARES ASSUMED. BED IN LOW AND LOCKED POSITION. CALL LIGHT WITHIN REACH.
[2022-06-11 07:58] LABS: ANION GAP 14.8 (8-16); CARBON DIOXIDE 24.3 mmol/L (21-32); CHLORIDE 111 mmol/L (98-107); CREATININE 1.7 mg/dL (0.6-1.3); GLUCOSE 97 mg/dL (74-106); POTASSIUM 4.1 mmol/L (3.5-5.1); SODIUM SERUM 146 mmol/L (136-145); UREA NITROGEN, BLOOD 21 mg/dL (7-18)
[2022-06-11 08:00] VITALS: BP 149/72
[2022-06-11] MEDS: FERROUS SULFATE 325 MG TABEC PO SCH (09:45)
[2022-06-11] MEDS: amLODIPine 5 MG TAB PO SCH (09:46)
[2022-06-11] MEDS: ATORVASTATIN 20 MG TAB PO SCH (09:46)
[2022-06-11] MEDS: METOPROLOL 25 MG TAB PO SCH (09:46)
[2022-06-11] MEDS: NACL 0.45% 1,000 ML IV SCH (09:47)
[2022-06-11] MEDS: PANTOPRAZOLE 40 MG TABEC PO SCH (09:47)
[2022-06-11] MEDS: OLANZapine 5 MG TAB PO SCH ×2 (09:47→21:45)
[2022-06-11] MEDS ORDERED: IV Rocephin IV (10:54)
[2022-06-11] MEDS ORDERED: AMLO5TAB PO (10:54)
[2022-06-11 16:00] VITALS: BP 142/83
--- NOTE | 2022-06-11 19:16 | NUR ---
SBAR REPORT GIVEN TO BENIGNO TAI, ALL CARES ENDORSED.
[2022-06-11 20:00] VITALS: BP 156/83
[2022-06-11] MEDS: DULoxetine 30 MG CAPDR PO SCH (21:44)
[2022-06-12] MEDS: NACL 0.45% 1,000 ML IV SCH ×2 (00:43→15:01)
[2022-06-12 06:49] LABS: BASOPHILS # (AUTO) 0.1 K/uL (0.00-0.22); BASOPHILS % (AUTO) 1.2 % (0.0-2.0); EOSINOPHILS # (AUTO) 0.3 K/uL (0-0.4); EOSINOPHILS % (AUTO) 3.3 % (0.0-4.0); HEMATOCRIT 31.7 % (36-48); HEMOGLOBIN 10.4 g/dL (12.0-16.0); LYMPHOCYTES # (AUTO) 2.2 K/uL (2.5-16.5); LYMPHOCYTES % (AUTO) 20.8 % (20.5-51.1); MEAN CORPUSCULAR HEMOGLOBIN 29 pg (27-31); MEAN CORPUSCULAR HGB CONC 33 g/dL (33-37); MEAN CORPUSCULAR VOLUME 89.1 fL (80-94); MONOCYTES # (AUTO) 0.9 K/uL (0.8-1.0); MONOCYTES % (AUTO) 8.9 % (1.7-9.3); NEUTROPHILS # (AUTO) 6.9 K/uL (1.8-7.7); NEUTROPHILS % (AUTO) 65.8 % (42.2-75.2); PLATELET COUNT (AUTO) 198 K/uL (140-450); RED BLOOD CELL COUNT(AUTO) 3.56 MIL/uL (4.20-5.40); WHITE BLOOD COUNT (AUTO) 10.5 K/uL (4.8-10.8)
[2022-06-12 07:26] LABS: ANION GAP 11.8 (8-16); CARBON DIOXIDE 26.1 mmol/L (21-32); CHLORIDE 109 mmol/L (98-107); CREATININE 1.8 mg/dL (0.6-1.3); GLUCOSE 101 mg/dL (74-106); POTASSIUM 3.9 mmol/L (3.5-5.1); SODIUM SERUM 143 mmol/L (136-145); UREA NITROGEN, BLOOD 25 mg/dL (7-18)
[2022-06-12 08:00] VITALS: BP 176/79
[2022-06-12] MEDS: OLANZapine 5 MG TAB PO SCH ×2 (09:00→20:56)
[2022-06-12] MEDS: METOPROLOL 25 MG TAB PO SCH (09:00)
[2022-06-12] MEDS: amLODIPine 5 MG TAB PO SCH (09:00)
[2022-06-12] MEDS: PANTOPRAZOLE 40 MG TABEC PO SCH (09:00)
[2022-06-12] MEDS: FERROUS SULFATE 325 MG TABEC PO SCH (09:00)
[2022-06-12] MEDS: ATORVASTATIN 20 MG TAB PO SCH (09:00)
[2022-06-12 16:00] VITALS: BP 165/68
--- NOTE | 2022-06-12 16:15 | NUR ---
RECEIVE DISCHARGE PATIENT ORDER, NURSE CALL [facility] CAR DETAILER, DARRIUS ([phone] TO FOLLOW UP FOR PATIENT'S ROOM ASSIGNMENT. AFTER 3 TIME PHONE CONVERSATIONS, NURSE RECEIVE PATIENT'S BED ALIGNMENT IS 24C. THEN, NURSE CALLED [facility] ([phone]) FOR TRANSPORTATION ARRANGEMENT AND FOUND THERE'S NO TRANSPORTATION AVAILABLE FOR [facility] IN 06/12/2022. THE EARLIEST AVAILABLE NON-EMERGENCY MEDICAL TRANSPORTATION FOR [facility] IN NEXT DAY WILL BE AFTER 1300 AND BEFORE 1400. WILL ENDORSE.
--- NOTE | 2022-06-12 19:28 | NUR ---
ENDORSE PATIENT TO PM SHIFT NURSE WHILE PATIENT IS REST IN BED, AGGARWAL IN PLACE, IV L. FOREARM 24G SALINE LOCK. US GUIDED THORACENTESIS CONSENT SIGNED, PT/PTT/INR AND PLT LAB RESULTS AVAILABLE Addendum: 06/12/22 at 1945 by Leonor Calderon RN WRONG PATIENT ENDORSE PATIENT TO PM SHIFT NURSE THAT PATIENT REST IN BED, STABLE W/ NO IV (PATIENT REFUSE IV). DISCHARGE ORDER IN PLACE. PATIENT WILL D/C TO [facility] AND [place] [facility] ANALYST TIME WOULD BE BETWEEN 1300 TO 1400.
--- NOTE | 2022-06-12 19:29 | NUR ---
PATIENT WAS ENDORSED BY KOLTON TAI, PATIENT WAS NOTED STABLE DURING SHIFT REPORT. PATIENT NOTED ASLEEP IN BED. PATIENT ON ROOM AIR NOTED CHEST RISING AND FALLING UNLABORED. NO NOTED S/S OF PAIN/DISCOMFORT AT THIS TIME. PATIENT WAS KEPT CLEAN AND DRY. NO NOTED IV SITE AND WAS REPORTED TO NURSING THAT PATIENT REFUSES AN IV LINE TO BE STARTED. BED AT THE LOWEST LEVEL SIDE RAILS UP X 2 FOR SAFETY. CALL LIGHT WITHIN REACH FOR ASSISTANCE. DISCHARGE PLANING NOTED FOR TOMORROW TO [facility]. [place] TAI WILL RETURN TOMORROW TO [facility] OUT ORDERS. [email or web address]
[2022-06-12 20:00] VITALS: BP 142/72
[2022-06-12] MEDS: DULoxetine 30 MG CAPDR PO SCH (20:56)
--- NOTE | 2022-06-12 21:00 | NUR ---
NURSING INQUIRED IF WE CAN RESTART IV ACCESS AND PATIENT DECLINED. PATIENT WAS ABLE TO STATE HER NAME, CURRENT PRESIDENT, AND EVERYTHING ELSE WAS CONFUSED RESPONSE. VERY ADAMANT TO NOT HAVE AN IV ACCESS. COVERING RN WAS INFORMED. PREVIOUS SHIFT RN INFORMED MD OR PATIENT'S REFUSAL. [email or web address]
--- NOTE | 2022-06-12 23:01 | NUR ---
PATIENT NOTED IN BED ASLEEP. WAS ABLE TO TAKE ORAL MEDICATION WITHOUT INCIDENT. NO NOTE S/S OF PAIN/DISCOMFORT. NO NOTED RESPIRATORY DISTRESS. BED AT LOWEST LEVEL. SIDE RAILS UP X 2 FOR SAFETY AND ADJUSTMENT FOR COMFORT. CALL LIGHT WITHIN REACH FOR ASSISTANCE. [email or web address]
--- NOTE | 2022-06-13 01:41 | NUR ---
PATIENT REMAINS IN BED ASLEEP. BED ALARM ON AND WORKING TO DETECT PATIENT GETTING OUT OF THE BED AND NOT USING THE CALL LIGHT FOR ASSISTANCE. NO NOTED S/S OF PAIN/DISCOMFORT. NO NOTED RESPIRATORY DISTRESS. SIDE RAILS UP X 2. CALL LIGHT WITHIN REACH. BED AT THE LOWEST LEVEL. [email or web address]
--- NOTE | 2022-06-13 03:17 | NUR ---
PATIENT REMAINS IN BED ASLEEP. BED ALARMS ARE ON AND SET FOR HER SAFETY. NO NOTED S/S OF PAIN/DISCOMFORT. NO NOTED RESPIRATORY DISTRESS. SIDE RAILS UP X 2. CALL LIGHT WITHIN REACH. BED AT THE LOWEST LEVEL. [email or web address]
[2022-06-13 04:00] VITALS: BP 137/65
[2022-06-13] MEDS: NACL 0.45% 1,000 ML IV SCH (05:19)
--- NOTE | 2022-06-13 05:31 | NUR ---
PATIENT REMAINS IN BED ASLEEP. NO NOTED S/S OF PAIN/DISCOMFORT. NO NOTED RESPIRATORY DISTRESS. SIDE RAILS UP X 3. CALL LIGHT WITHIN REACH. BED AT THE LOWEST LEVEL. [email or web address]
[2022-06-13 06:59] LABS: BASOPHILS # (AUTO) 0.1 K/uL (0.00-0.22); BASOPHILS % (AUTO) 1.1 % (0.0-2.0); EOSINOPHILS # (AUTO) 0.3 K/uL (0-0.4); EOSINOPHILS % (AUTO) 3.2 % (0.0-4.0); HEMATOCRIT 31.1 % (36-48); HEMOGLOBIN 10.3 g/dL (12.0-16.0); LYMPHOCYTES # (AUTO) 1.8 K/uL (2.5-16.5); LYMPHOCYTES % (AUTO) 19.1 % (20.5-51.1); MEAN CORPUSCULAR HEMOGLOBIN 29 pg (27-31); MEAN CORPUSCULAR HGB CONC 33 g/dL (33-37); MEAN CORPUSCULAR VOLUME 87.5 fL (80-94); MONOCYTES # (AUTO) 0.7 K/uL (0.8-1.0); NEUTROPHILS # (AUTO) 6.4 K/uL (1.8-7.7); NEUTROPHILS % (AUTO) 68.6 % (42.2-75.2); PLATELET COUNT (AUTO) 220 K/uL (140-450); RED BLOOD CELL COUNT(AUTO) 3.56 MIL/uL (4.20-5.40); RED CELL DISTRIBUTION WIDTH 13.9 % (11.6-13.7); WHITE BLOOD COUNT (AUTO) 9.3 K/uL (4.8-10.8)
[2022-06-13 07:05] LABS: ANION GAP 12.6 (8-16); CARBON DIOXIDE 26.1 mmol/L (21-32); CHLORIDE 110 mmol/L (98-107); CREATININE 1.8 mg/dL (0.6-1.3); GLUCOSE 97 mg/dL (74-106); POTASSIUM 3.7 mmol/L (3.5-5.1); SODIUM SERUM 145 mmol/L (136-145); UREA NITROGEN, BLOOD 25 mg/dL (7-18)
--- NOTE | 2022-06-13 07:13 | NUR ---
ENDORSE PATIENT TO KOLTON RN, PATIENT WAS STABLE AT THE CHANGE OF SHIFT. [email or web address]
[2022-06-13 08:00] VITALS: BP 150/69
[2022-06-13] MEDS: OLANZapine 5 MG TAB PO SCH ×2 (08:53→20:52)
[2022-06-13] MEDS: FERROUS SULFATE 325 MG TABEC PO SCH (08:54)
[2022-06-13] MEDS: PANTOPRAZOLE 40 MG TABEC PO SCH (08:54)
[2022-06-13] MEDS: ATORVASTATIN 20 MG TAB PO SCH (08:54)
[2022-06-13] MEDS: METOPROLOL 25 MG TAB PO SCH (08:54)
[2022-06-13] MEDS: amLODIPine 5 MG TAB PO SCH (08:55)
--- NOTE | 2022-06-13 11:59 | NUR ---
DC PLANNING JUAN JOSE OUTREACHED TO [place] CM, BATSHEVA, TO OBTAIN FINAL AUTH. BATSHEVA REPORTED THAT PATIENT NO LONGER APPROVED FOR SNF PT NOTES HAVE . BATSHEVA REQUESTING UPDATED PT NOTES. JUAN JOSE FAXED OVER REQUESTED PT NOTES. JUAN JOSE TO FOLLOW Addendum: 06/13/22 at 1247 by Cristina Pepe JUAN JOSE FIELDED CALL FROM [employer], VACUUM SYSTEM TESTER, BATSHEVA WHO REPORTS THAT PATIENT NO LONGER MEETS CRITERIA FOR SNF CARE. CM TO APPROVE HOME HEALTH. A REFERRAL WILL BE MADE TO HOME HEALTH TO FOLLOW UP WITH PATIENT ONCE DC. Addendum: 06/14/22 at 0858 by Cristina Pepe JUAN JOSE ARRANGED TRANSPORT W/M&J TO TRANSPORT PATIENT BACK TO [facility]. M&J TO RETURN CALL WITH CONCRETE PIPE MACHINE OPERATOR TIME. Addendum: 06/14/22 at 0905 by Cristina Pepe SS JUAN JOSE FAXED HH ORDERS TO BATSHEVA AT [facility]. Addendum: 06/14/22 at 1153 by Cristina Pepe SS JUAN JOSE FIELDED CALL FROM NILESH AT [facility] WHO REPORTED THAT HH WITH [facility] [phone] HAS BEEN APPROVED. JUAN JOSE PROVIDED NILESH (COORDINATOR) WITH PATIENTS EMERGENCY CONTACT (January) TO COORDINATE HH SERVICES. COORDINATOR TO SEND OVER TO [facility]. Addendum: 06/14/22 at 1450 by Cristina JOY JUAN JOSE OUTREACHED TO SCOOTER POLANCO ( PT'S CAREGIVER/DPOA) TO NOTIFY HER THAT PATIENT IS BEING TRANSPORTED BACK HOME TO [facility]. SCOOTER IN UNDERSTANDING. JUAN JOSE ENCOURAGED SCOOTER TO UTILIZE [facility] OFFICE FOR ADDITIONAL ASSISTANCE ON FINDING FINISHER DENTURE HOUSING. SCOOTER IN UNDERSTANDING AND REPORTED SHE WOULD MAKE CONTACT WITH [facility]
--- NOTE | 2022-06-13 12:35 | NUR ---
PHYSICAL THERAPY CO-SIGN The Physical Therapy Progress Notes documented by Gas Engine Repairer have been reviewed. Reviewed/Co-Signed by: Christine Dumont Documentation Done by: RAHUL DOWNS PTA Addendum: 06/13/22 at 1235 by Christine Dumont PT Amended: Links added.
[2022-06-13 13:11] VITALS: BP 150/69
--- NOTE | 2022-06-13 15:37 | NUR ---
06/13/22 RD FOLLOW UP COMPLETED PLEASE REFER TO NUTRITION ASSESSMENT UNDER CARE ACTIVITY FOR ESTIMATED NUTRITIONAL NEEDS. 1. CONTINUE MECHANICAL SOFT DIET TOLERATED 2. MONITOR PO INTAKE -IF < 75%, RECOMMEND ENSURE BID FOR NUTRITION SUPPORT 3. RD TO FOLLOW-UP 7 DAYS, LOW RISK TIRSO ROSADO RD
--- NOTE | 2022-06-13 19:39 | NUR ---
ENDORSE PATIENT TO PM SHIFT NURSE WHILE PATIENT STABLE AND AMBULATING OUT HER ROOM QUESTING WHEN SHE CAN GO HOME. PATIENT ALREADY SIGN DISCHARGE CONSENT FOR D/C TO [facility] BUT CANCELLED.
--- NOTE | 2022-06-13 19:40 | NUR ---
RECEIVED REPORT FROM DAY SHIFT ABIDA HI. PT IS AWAKE. PT WONDER ON THE [address] WAY WANTING TO GO HOME. PT WAS REDIRECTED TO ROOM. PT BACK IN BED. PT IS ON RA. PT HAS NO IV SITE. PER DAY SHIFT PT REFUSED IV. NO OTHER COMPLAINS. DENIES PAIN. WILL CONTINUE TO MONITOR THE PT.
[2022-06-13 20:00] VITALS: BP 159/68
[2022-06-13] MEDS: ZOLPIDEM 5 MG TAB PO PRN (20:52)
[2022-06-13] MEDS: DULoxetine 30 MG CAPDR PO SCH (20:52)
--- NOTE | 2022-06-13 20:55 | NUR ---
SCHEDULE MEDS GIVEN. NO ADVERSE REACTION NOTED. WILL CONTINUE TO MONITOR THE PT.
--- NOTE | 2022-06-14 01:30 | NUR ---
OBSERVED PT. PT IS SLEEPING COMFORTABLY IN BED. VISIBLE RISE AND CHEST FALL. PT NOT IN ANY DISTRESS. WILL CONTINUE TO MONITOR.
[2022-06-14 04:00] VITALS: BP 139/67
--- NOTE | 2022-06-14 04:06 | NUR ---
VITAL SIGNS TAKEN AND WITHIN NORMAL LIMITS. PT DENIES ANY PAIN AND HAS NO COMPLAIN. WILL CONTINUE TO MONITOR THE PT.
--- NOTE | 2022-06-14 07:01 | NUR ---
ENDORSED PT TO DAY SHIFT ABIDA HI FOR CONTINUITY OF CARE. PT IS STABLE.
[2022-06-14 07:09] LABS: BASOPHILS # (AUTO) 0.1 K/uL (0.00-0.22); BASOPHILS % (AUTO) 1.1 % (0.0-2.0); EOSINOPHILS # (AUTO) 0.3 K/uL (0-0.4); EOSINOPHILS % (AUTO) 3.2 % (0.0-4.0); HEMATOCRIT 28.1 % (36-48); HEMOGLOBIN 9.2 g/dL (12.0-16.0); LYMPHOCYTES # (AUTO) 1.9 K/uL (2.5-16.5); LYMPHOCYTES % (AUTO) 20.3 % (20.5-51.1); MEAN CORPUSCULAR HEMOGLOBIN 29 pg (27-31); MEAN CORPUSCULAR HGB CONC 33 g/dL (33-37); MEAN CORPUSCULAR VOLUME 87.1 fL (80-94); MONOCYTES # (AUTO) 0.7 K/uL (0.8-1.0); MONOCYTES % (AUTO) 7.3 % (1.7-9.3); NEUTROPHILS # (AUTO) 6.5 K/uL (1.8-7.7); NEUTROPHILS % (AUTO) 68.1 % (42.2-75.2); PLATELET COUNT (AUTO) 208 K/uL (140-450); RED BLOOD CELL COUNT(AUTO) 3.23 MIL/uL (4.20-5.40); RED CELL DISTRIBUTION WIDTH 13.3 % (11.6-13.7); WHITE BLOOD COUNT (AUTO) 9.6 K/uL (4.8-10.8)
[2022-06-14 08:00] VITALS: BP 123/60
[2022-06-14 08:19] LABS: ANION GAP 14.3 (8-16); CARBON DIOXIDE 25.4 mmol/L (21-32); CHLORIDE 109 mmol/L (98-107); GLUCOSE 100 mg/dL (74-106); POTASSIUM 3.7 mmol/L (3.5-5.1); SODIUM SERUM 145 mmol/L (136-145); UREA NITROGEN, BLOOD 28 mg/dL (7-18)
[2022-06-14 08:20] LABS: CREATININE 1.8 mg/dL (0.6-1.3)
[2022-06-14] MEDS: FERROUS SULFATE 325 MG TABEC PO SCH (09:05)
[2022-06-14] MEDS: METOPROLOL 25 MG TAB PO SCH (09:06)
[2022-06-14] MEDS: PANTOPRAZOLE 40 MG TABEC PO SCH (09:07)
[2022-06-14] MEDS: ATORVASTATIN 20 MG TAB PO SCH (09:07)
[2022-06-14] MEDS: OLANZapine 5 MG TAB PO SCH (09:07)
[2022-06-14] MEDS: amLODIPine 5 MG TAB PO SCH (09:09)
--- NOTE | 2022-06-14 11:59 | NUR ---
PHYSICAL THERAPY CO-SIGN The Physical Therapy Progress Notes documented by Health Psychologist have been reviewed. Reviewed/Co-Signed by: Christine Dumont Documentation Done by: RAHUL DOWNS PTA Addendum: 06/14/22 at 1200 by Christine Dumont PT Amended: Links added.
[2022-06-14 14:46] VITALS: BP 123/60
--- NOTE | 2022-06-14 15:18 | NUR ---
DISCHARGE PATIENT IN STABLE CONDITION. [place] NON-EMERGENCY MEDICAL TRANSFORATION PICK PATIENT UP AT 1515. CONSENT FOR DISCHARGE SIGNED, IV ACCESS & WRIST BAND REMOVED. PATIENT'S NEXT KIN ([phone]) CALLED AND LEFT MESSAGE REGARDING TO PATIENT IS ON THE WAY HOME
== END 2022-06-14 15:15 | disposition home health service (06) | DRG 871 ==
LOC: MED 15:41 → MTU 17:23
PROVIDERS: ADMIT Family Medicine; ATTEND Family Medicine
DX: A41.9 Sepsis, unspecified organism (principal); G93.41 Metabolic encephalopathy; N17.0 Acute kidney failure with tubular necrosis; E87.1 Hypo-osmolality and hyponatremia; E86.0 Dehydration; R13.10 Dysphagia, unspecified; E11.9 Type 2 diabetes mellitus without complications; Z20.822 Contact with and (suspected) exposure to COVID-19; E86.1 Hypovolemia; I10 Essential (primary) hypertension; N30.90 Cystitis, unspecified without hematuria; D63.8 Anemia in other chronic diseases classified elsewhere; Z79.01 Long term (current) use of anticoagulants; Z79.899 Other long term (current) drug therapy
CPT/HCPCS: 36415; 70450; 71045; 76770; 80048; 80053; 81001; 82150; 83036; 83605; 83690; 83735; 83880; 84100; 84436; 84439; 84443; 84479; 84484; 85025; 85610; 85730; 87040; 87081; 87086; 93005; 96360; 96361; 97112; 97116; 97530; 99285; J0696; J1630; J2405; J7030; J7060; Q0092

== ENCOUNTER 2022-07-03 07:50 | Emergency (ER) | payer OTHER ==
[~2022-07-03] VITALS: Ht 167.6 cm; Wt 74.8 kg
[~2022-07-03 07:50] MED LIST changes: +AMLO5TAB PO; +IV Rocephin IV; -LEVO250T3; +OLAN2.5T1 PO; -PIOG-4 PO; -[UNRECOGNIZED DRUG - CODE] PO; -[UNRECOGNIZED DRUG - CODE] PO
--- NOTE | 2022-07-03 07:55 | NUR ---
Patient BIBA to bed 7
--- NOTE | 2022-07-03 07:57 | NUR ---
Dr. Epperson evaluating patient at bedside.
[2022-07-03 08:03] VITALS: BP 155/74
--- NOTE | 2022-07-03 08:16 | NUR ---
82 y/o female biba from home with c/o mechanical fall after slipping on rice at 0200. Fall was unwitnessed. Patient remembers falling but does not remember how she fell. Patient denies any pain at this time. Patient is noted with a small skin abrasion to left knee. Medical History: Dementia, Schizophrenia, Bipolar, Diverticulosis ALLERGY: ERYTHROMYCIN, NORCO
--- NOTE | 2022-07-03 08:35 | NUR ---
PT TAKEN TO CT SCAN VIA [place]
[2022-07-03 10:05] VITALS: BP 110/60
--- NOTE | 2022-07-03 10:05 | NUR ---
Patient discharged with v/s stable. Written and verbal after care instructions given. Patient verbalized understanding. Wheel Chair Assisted with to car. All questions addressed prior to discharge. Advised to follow up with PMD.
--- NOTE | 2022-07-03 10:06 | NUR ---
Chart checked and completed. The patient's care was reviewed and supervised by Ava Borrego RN.
== END 2022-07-03 10:05 | disposition home or self-care (01) ==
LOC: MED 07:50
DX: R55 Syncope and collapse (principal); M25.562 Pain in left knee; G30.9 Alzheimer's disease, unspecified; F02.80 Dementia in other diseases classified elsewhere, unspecified severity, without behavioral disturbance, psychotic disturbance, mood disturbance, and anxiety; Z88.1 Allergy status to other antibiotic agents; Z88.6 Allergy status to analgesic agent; Z88.5 Allergy status to narcotic agent; Z79.899 Other long term (current) drug therapy
CPT/HCPCS: 70450; 81002; 99284

== ENCOUNTER 2022-07-05 19:18 | Inpatient (IN) | payer OTHER ==
[~2022-07-05] VITALS: Ht 165.1 cm; Wt 73.5 kg
[2022-07-05 20:00] VITALS: BP 128/90
--- NOTE | 2022-07-05 20:00 | NUR ---
TAWNYA FROM [facility] C/O LOWER BACK PAIN S/P FALL FROM BED AT 1830HOURS, NO TRAUMA NOR INJURY. ALERT AWAKE , ORIENTED .
[2022-07-05] MEDS ORDERED: NACL 0.9% 1,000 ML IV ONE (21:30)
--- NOTE | 2022-07-05 21:52 | NUR ---
[facility]
[2022-07-05 21:53] LABS: BASOPHILS # (AUTO) 0.1 K/uL (0.00-0.22); BASOPHILS % (AUTO) 0.7 % (0.0-2.0); EOSINOPHILS # (AUTO) 0.2 K/uL (0-0.4); EOSINOPHILS % (AUTO) 2.6 % (0.0-4.0); HEMATOCRIT 33.8 % (36-48); HEMOGLOBIN 10.9 g/dL (12.0-16.0); LYMPHOCYTES # (AUTO) 1.8 K/uL (2.5-16.5); MEAN CORPUSCULAR HEMOGLOBIN 28 pg (27-31); MEAN CORPUSCULAR HGB CONC 32 g/dL (33-37); MEAN CORPUSCULAR VOLUME 86.1 fL (80-94); MONOCYTES # (AUTO) 0.6 K/uL (0.8-1.0); MONOCYTES % (AUTO) 6.8 % (1.7-9.3); NEUTROPHILS # (AUTO) 6.4 K/uL (1.8-7.7); NEUTROPHILS % (AUTO) 69.9 % (42.2-75.2); PLATELET COUNT (AUTO) 289 K/uL (140-450); RED BLOOD CELL COUNT(AUTO) 3.93 MIL/uL (4.20-5.40); RED CELL DISTRIBUTION WIDTH 13.9 % (11.6-13.7); WHITE BLOOD COUNT (AUTO) 9.2 K/uL (4.8-10.8)
--- NOTE | 2022-07-05 22:17 | NUR ---
PT BACK FROM X-RAY
[2022-07-05 22:20] LABS: ALBUMIN 3.1 g/dL (3.4-5.0); ANION GAP 11.2 (8-16); ASPARTATE AMINOTRANSFERASE 18 U/L (15-37); CARBON DIOXIDE 28.3 mmol/L (21-32); CHLORIDE 110 mmol/L (98-107); CREATININE 2.2 mg/dL (0.6-1.3); GLUCOSE 117 mg/dL (74-106); LIPASE 36 U/L (73-393); POTASSIUM 3.5 mmol/L (3.5-5.1); SODIUM SERUM 146 mmol/L (136-145); TOTAL BILIRUBIN 0.6 mg/dL (0.0-1.0); UREA NITROGEN, BLOOD 26 mg/dL (7-18)
--- NOTE | 2022-07-05 23:00 | NUR ---
STRAIGHT CATHED FOR UA. UA SENT TO LAB
[2022-07-05 23:12] LABS: APPEARANCE,URINE CLEAR (CLEAR); BILIRUBIN,URINE NEGATIVE (NEGATIVE); BLOOD, URINE NEGATIVE (NEGATIVE); COLOR,URINE YELLOW (YELLOW); LEUKOCYTE ESTERASE ,URINE NEGATIVE (NEGATIVE); NITRITE, URINE NEGATIVE (NEGATIVE); UGLUCOSE NEGATIVE (NEGATIVE)
--- NOTE | 2022-07-06 02:00 | NUR ---
RESTING IN BED WITH EYES CLOSED, RESPIRATIONS REGULAR AND UNLABORED
--- NOTE | 2022-07-06 06:05 | NUR ---
SPOKE WITH POWER OF EMPLOYMENT APPEALS EXAMINER WHO VOICED CONCERN RE ; PTS INCREASED OCCURENCE OF FALLS AND INCREASED CONFUSION. PT WAS FOUND WANDERING IN THE [facility] [employer] IN[employer] AND WAS PICKED UP BY [facility].
--- NOTE | 2022-07-06 07:26 | NUR ---
Receivd patient with both eyes open resting in semi-fowlers position with secured entrance monitor in place. New linens placed and blanket provided. Diaper in place with no urinary incontinence noted. Bed locked in lowest position, side rails x 1.
--- NOTE | 2022-07-06 07:26 | NUR ---
Report and continuation of care received from ABIDA Keys.
--- NOTE | 2022-07-06 09:15 | NUR ---
PROVIDED PT WITH BREAKFAST. PT ON CARDIAC/O2 MONITOR, VSS. ALL NEEDS MET AT THIS TIME.
--- NOTE | 2022-07-06 11:06 | NUR ---
PT ASSISTED TO RESTROOM AT THIS TIME
--- NOTE | 2022-07-06 12:02 | NUR ---
PT PROVIDED WITH WARM BLANKET AND SOCKS. LUNCH SERVED. ALL NEEDS MET AT THIS TIME
--- NOTE | 2022-07-06 13:35 | NUR ---
Efe coy in [facility] - 07/07/22 at 0909 by [email or web address] PT AT BEDSIDE
--- NOTE | 2022-07-06 13:35 | NUR ---
PHYSICAL THERAPY AT BEDSIDE FOR EVALUATION
--- NOTE | 2022-07-06 14:19 | NUR ---
PT PROVIDED WITH BED REYNOSO. PT CLEANED AND RESPOSITIONED FOR COMFORT. ALL NEEDS MET
--- NOTE | 2022-07-06 17:11 | NUR ---
PT TRYING TO WALK AROUND ROOM. PT REORIENTED AND ASSISTED BACK TO BED
--- NOTE | 2022-07-06 18:45 | NUR ---
REPORT GIVEN TO JUAREZ RN, TRANSFER OF CARE AT THIS TIME
--- NOTE | 2022-07-06 19:05 | NUR ---
Move to bed 7 and provide food tray for patient.
--- NOTE | 2022-07-06 20:00 | NUR ---
Assisted patient to restroom.
--- NOTE | 2022-07-06 21:42 | NUR ---
Patient appears to be resting comfortably in bed. Vital Signs within normal limits. Respirations even and unlabored.
--- NOTE | 2022-07-06 23:13 | NUR ---
Patient appears to be resting comfortably in bed. Vital Signs within normal limits. Respirations even and unlabored.
--- NOTE | 2022-07-07 01:19 | NUR ---
Patient is sleeping.
--- NOTE | 2022-07-07 01:28 | NUR ---
Assisted patient to restroom.
--- NOTE | 2022-07-07 02:10 | NUR ---
Patient is sleeping.
--- NOTE | 2022-07-07 04:06 | NUR ---
Patient request to D/C to facility , spoke to patient. Patient will stay tonight in ER.
--- NOTE | 2022-07-07 04:38 | NUR ---
Patient sit on the bed.
--- NOTE | 2022-07-07 05:39 | NUR ---
Patient appears to be resting comfortably in bed. Vital Signs within normal limits. Respirations even and unlabored.
--- NOTE | 2022-07-07 06:26 | NUR ---
Patient is sleeping.
--- NOTE | 2022-07-07 06:37 | NUR ---
Report given to ABIDA Royal.
--- NOTE | 2022-07-07 06:38 | NUR ---
REPORT RECEIVED FROM ABIDA PIZARRO. TRANSFER OF CARE AT THIS TIME. PT SLEEPING IN BED AT THIS TIME, EVEN AND UNLABORED RESPIRATIONS NOTED.
--- NOTE | 2022-07-07 07:15 | NUR ---
REPORT GIVEN TO LOAN TERRY. TRANSFER OF CARE AT THIS TIME.
--- NOTE | 2022-07-07 07:16 | NUR ---
Report recieved from ABIDA Royal for transfer of care.
--- NOTE | 2022-07-07 08:14 | NUR ---
Patient was offered her breakfast tray. Patient is sitting up on bed eating breakfast.
--- NOTE | 2022-07-07 09:17 | NUR ---
Patient is laying in bed, respirations even and unlabored. Patient has no signs of distress.
--- NOTE | 2022-07-07 11:28 | NUR ---
Patient was assisted to restroom.
--- NOTE | 2022-07-07 12:06 | NUR ---
Patient was offered lunch tray, patient is sitting up eating lunch.
--- NOTE | 2022-07-07 12:43 | NUR ---
DC PLANNING: CM CALLED [facility] [phone] LEFT A MESSAGE X2 FOR BATSHEVA SPAIN. BATSHEVA CALLED BACK STATED SHE DIDN'T RECEIVE ANY CALL FOR ADMISSION REQUEST OR SNF PLACEMENT. PROVIDE THE CONFIRMATION TIME AND DATE, BUT STILL DIDN'T KNOW THAT PATIENT IS IN ER. HOWEVER CM ADDRESSED THE CONCERN AND ISSUE THAT IF WE DC PATIENT BACK TO [facility] WON'T BE A SAFE DISCHARGE BECAUSE PT HAS SEVER DEMENTIA WANDERING AROUND, GENERALIZE WEAKNESS AND MD RECOMMENDED A LOCKED UNIT. PER BATSHEVA TO FAX THE PT NOTES AND MD'S PROGRESS NOTES FAXED ALL PAPERWORK TO [phone] CM TO FOLLOW Addendum: 07/07/22 at 1443 by Kimberlyn Thomas RN DC PLANNING: CALLED [facility] M SPOKE WITH BATSHEVA STATED REVIEWED THE CASE AND SHE MEETS THE CRITERIA FOR LOCK FACILITY AND TO FAX TO [facility] AND SHE ALSO FAXED SEVERAL SNF'S WHO HAS LOCKED UNIT. FAXED TO [facility]. CM TO FOLLOW Addendum: 07/08/22 at 1235 by Kimberlyn Thomas RN DC PLANNING: RECEIVED A CALL FROM GRAYSON AT [facility] STATED NO BED IN THEIR LOCKED UNIT WILL PUT HER ON WAITING LIST. FAXED TO [facility] AND [facility]. CM TO FOLLOW
--- NOTE | 2022-07-07 13:40 | NUR ---
RECEIVED CALL FROM CHRISTA SIDEWALK REPAIRER WHO IS STILL WORKING ON FINDING SNF PLACEMENT FOR PT THROUGH INSURANCE. SYEDA ELLIS SAMPLE COLLECTED AND WALKED TO LAB.
--- NOTE | 2022-07-07 15:29 | NUR ---
ATTEMPTED TO MAKE CONTACT WITH January PATIENTS SS CAREGIVER/DPOA AT [phone], HOWEVER UNSUCCESSFUL. UNABLE TO LEAVE VM, VM FULL. JUAN JOSE OUTREACHED TO [facility] [phone] FOR CONSULTATION. HOWEVER SW UNAVAILABLE TO TAKE CALL. SPOKE WITH RAMANDEEP HALL [employer] DRIVER WHO REPORTS A SW WILL RETURN PHONE CALL BASED ON PLACEMENT IN QUEUE. SW TO FOLLOW Addendum: 07/08/22 at 0848 by Cristina JOY VM LEFT BY [facility] JUAN JOSE AFTER WORKING HOURS. JUAN JOSE OUTREACHED TO [facility] [phone] IN SECOND ATTEMPT FOR CONSULTATION. HOWEVER RAFAEL INGRAM UNAVAILABLE TO TAKE CALL FOR CONSULTATION. SPOKE WITH [employer] DRIVER WHO REPORTS A SW WILL RETURN PHONE CALL BASED ON PLACEMENT IN QUEUE. SW TO FOLLOW Addendum: 07/08/22 at 0913 by Cristina JOY FIELDED CALL FROM RAFAEL COLEY FOR CONSULTATION. BRIJESH PROVIDED CONSULTATION AND WAS FOUND TO MEET CRITERIA FOR REPORT. REPORT WAS MADE, REPORT NUMBER [id number]. Addendum: 07/08/22 at 1530 by Cristina JOY SPOKE WITH PATIENTS DPOA/CAREGIVER, SCOOTER AND PROVIDED HER WITH UPDATE. NOTIFIED SCOOTER, PATIENT WOULD BE GOING TO [facility] [place] [place]. SCOOTER IS AWARE THAT STAY IS TEMPORARY AND WAS ENCOURAGED TO UTILIZE RESOURCES PATIENT IS CONTINUOUSLY FOUND WANDERING AND BROUGHT INTO THE ED. SCOOTER PROVIDED ADDITIONAL CONTACT NUMBER TO REACH HER- [phone] JUAN JOSE NOTIFIED FROM FRONT OFFICE, LAURA GREGORY WAS IN LOBBY TO RATE SETTER PATIENT, LAURA REPORTS THAT HE WAS SENT BY SCOOTER . JUAN JOSE SPOKE WITH LAURA WHO REPORTS HE IS THE PATIENTS [facility] CAREGIVER AND HAS ONLY BEGAN WORKING WITH PATIENT 1 WEEK AGO. LAURA PROVIDED HIS PHONE NUMBER [phone]. LAURA REPORTS HE PROVIDES CARE M-F 8HRS/DAY. JUAN JOSE ENCOURAGED LAURA TO WORK WITH [employer] ON FINDING SUITABLE ARRANGEMENTS FOR PATIENT. LAURA GIVEN CONTACT INFO FOR WHERE PATIENT WILL BE GOING ([facility] [place] [place]). Addendum: 07/12/22 at 1033 by Cristina JOY CALLED [facility] [phone] TO PROVIDE UPDATE ON WHERE PATIENT IS CURRENTLY PLACED- ([facility]) HOWEVER, SPOKE WITH ALLISON WHO REPORTS ALL SW TAKING CALLS AT THIS TIME. PROVIDED ALLISON W/ CONTACT INFO FOR RETURN PHONE CALL. Addendum: 07/12/22 at 1248 by Cristina Pepe FIELDED CALL FROM INTAKE JUAN JOSE DAVISON AND PROVIDED HER WITH UPDATE ON SNF PLACEMENT/ADDRESS, NEEDED FOR INVESTIGATING SW.
--- NOTE | 2022-07-07 17:26 | NUR ---
CONTACTED [facility]NAG[facility] FOR UPDATE REGARDING PLACEMENT. STATED THAT INSURANCE DENIED PLACEMENT AND ADMISSION WAS UP TO THE HOSPITAL. POPPY BOLAND CONTACTED AND WAS TOLD TO ADMIT TO ONCALL
--- NOTE | 2022-07-07 18:08 | NUR ---
Patient was offered her dinner tray. Patient is sitting up on bed eating.
--- NOTE | 2022-07-07 19:20 | NUR ---
Pt report given to LOAN Roth. Transfer of care at this time.
--- NOTE | 2022-07-07 19:23 | NUR ---
Attempted to call Liza Beauchamp, emergency contact to update patients home medications. No answer to phone number, unable to leave voicemail.
--- NOTE | 2022-07-07 20:42 | NUR ---
PATIENT AMBULATED TO RR WITH ASSIST
--- NOTE | 2022-07-07 20:42 | NUR ---
REPORT CALLED TO ABIDA MUÑOZ. TRANSFER OF CARE.
--- NOTE | 2022-07-07 20:43 | NUR ---
Patient will be admitted to care of NURIA MÁRQUEZ DO. Admited to MED/SURG. Will go to room 107B . Belongings list completed. Report to ABIDA MUÑOZ . TRANSFER OF CARE.
--- NOTE | 2022-07-07 20:44 | NUR ---
The patient's care was reviewed and supervised by Lacey Nguyen RN.
--- NOTE | 2022-07-07 21:30 | NUR ---
RECEIVED REPORT FROM GILA WALTERS RN FOR CONTINUITY OF CARE. PT ARRIVED ON MST UNIT VIA BED@2130. 2 PERSON ASSIST TO TRANSFER PT FROM ER BED TO UNIT BED. PT AMBULATED GAIT WEAK. PT A&0X1-2. DENIES PAIN. ON RM AIR/O2 WITH NO ACUTE DISTRESS.RR EVEN AND UNLABORED WITH EQUAL CHEST RISE. GI INTACT. PT'S SKIN IS INTACT. PT AMBULATES WITH ASSIST OF ONE AND IS CONTINENT. ALL SAFETY MEASURES IN PLACE. BED IN LOW AND LOCKED POSITION. CALL LIGHT WITHIN REACH. ENCOURAGEDTO CALL FOR ANY NEEDS. WILL CONTINUE TO MONITOR.
[2022-07-07] MEDS ORDERED: MAGNESIUM OXIDE 400 MG TAB PO PRN (22:55)
[2022-07-07] MEDS ORDERED: ONDANSETRON 4 MG/2 ML VIAL IM/IVP PRN (22:55)
[2022-07-07] MEDS ORDERED: NACL 0.9% 1,000 ML IV SCH (22:55)
[2022-07-07] MEDS ORDERED: POTASSIUM CHLORIDE 10 MEQ TABER PO PRN (22:55)
[2022-07-07] MEDS ORDERED: SODIUM PHOS / POTASSIUM PHOS 1 PKT PDR PO PRN (22:55)
[2022-07-07] MEDS ORDERED: DOCUSATE SODIUM 100 MG GELCAP PO PRN (22:55)
[2022-07-07 23:21] LABS: BASOPHILS # (AUTO) 0.1 K/uL (0.00-0.22); BASOPHILS % (AUTO) 1.5 % (0.0-2.0); EOSINOPHILS # (AUTO) 0.2 K/uL (0-0.4); EOSINOPHILS % (AUTO) 2.6 % (0.0-4.0); HEMATOCRIT 31.6 % (36-48); HEMOGLOBIN 10.4 g/dL (12.0-16.0); LYMPHOCYTES # (AUTO) 1.5 K/uL (2.5-16.5); LYMPHOCYTES % (AUTO) 16.3 % (20.5-51.1); MEAN CORPUSCULAR HEMOGLOBIN 28 pg (27-31); MEAN CORPUSCULAR HGB CONC 33 g/dL (33-37); MEAN CORPUSCULAR VOLUME 85.5 fL (80-94); MONOCYTES # (AUTO) 0.5 K/uL (0.8-1.0); MONOCYTES % (AUTO) 5.8 % (1.7-9.3); NEUTROPHILS # (AUTO) 6.9 K/uL (1.8-7.7); NEUTROPHILS % (AUTO) 73.8 % (42.2-75.2); PLATELET COUNT (AUTO) 278 K/uL (140-450); RED BLOOD CELL COUNT(AUTO) 3.69 MIL/uL (4.20-5.40); WHITE BLOOD COUNT (AUTO) 9.4 K/uL (4.8-10.8)
[2022-07-07 23:33] LABS: ANION GAP 10.9 (8-16); CARBON DIOXIDE 27.7 mmol/L (21-32); CHLORIDE 111 mmol/L (98-107); CREATININE 1.8 mg/dL (0.6-1.3); GLUCOSE 116 mg/dL (74-106); POTASSIUM 3.6 mmol/L (3.5-5.1); SODIUM SERUM 146 mmol/L (136-145); UREA NITROGEN, BLOOD 20 mg/dL (7-18)
[2022-07-08 00:02] LABS: MAGNESIUM 2.1 mg/dL (1.8-2.4); PHOSPHORUS 3.1 mg/dL (2.5-4.9)
--- NOTE | 2022-07-08 02:00 | NUR ---
FREQ ROUNDS. CHECKED PATIENT STABLE AND ASLEEPIN BED. RR EVEN AND UNLABORED WITH EQUAL CHEST RISE. ALL SAFETY MEASURES IN PLACE. BED IN LOW AND LOCKED POSITION. CALL LIGHT WITHIN REACH. WILL CONTINUE TO MONITOR.
[2022-07-08 04:00] VITALS: BP 117/64
--- NOTE | 2022-07-08 06:30 | NUR ---
VISUALLY ASSESSED PT Q2HRS. TOILETED PT. PT AMBULATED TO BATHROOM WITH ONE PERSON ASSIST.GAIT WEAK. VOIDED AND HAD A MODERATE FORMED BM. NAD. ALL NEEDS MET THIS SHIFT. WILL ENDORSE REPORT TO AM NURSE.
[2022-07-08 07:09] LABS: BASOPHILS # (AUTO) 0.1 K/uL (0.00-0.22); BASOPHILS % (AUTO) 1.2 % (0.0-2.0); EOSINOPHILS # (AUTO) 0.3 K/uL (0-0.4); EOSINOPHILS % (AUTO) 3.6 % (0.0-4.0); HEMATOCRIT 32.3 % (36-48); HEMOGLOBIN 10.5 g/dL (12.0-16.0); LYMPHOCYTES # (AUTO) 1.7 K/uL (2.5-16.5); LYMPHOCYTES % (AUTO) 19.4 % (20.5-51.1); MEAN CORPUSCULAR HEMOGLOBIN 28 pg (27-31); MEAN CORPUSCULAR HGB CONC 32 g/dL (33-37); MEAN CORPUSCULAR VOLUME 86.6 fL (80-94); MONOCYTES # (AUTO) 0.5 K/uL (0.8-1.0); MONOCYTES % (AUTO) 5.9 % (1.7-9.3); NEUTROPHILS # (AUTO) 6.1 K/uL (1.8-7.7); NEUTROPHILS % (AUTO) 69.9 % (42.2-75.2); PLATELET COUNT (AUTO) 258 K/uL (140-450); RED BLOOD CELL COUNT(AUTO) 3.73 MIL/uL (4.20-5.40); RED CELL DISTRIBUTION WIDTH 13.9 % (11.6-13.7); WHITE BLOOD COUNT (AUTO) 8.7 K/uL (4.8-10.8)
[2022-07-08 07:24] LABS: ANION GAP 12.7 (8-16); CARBON DIOXIDE 25.6 mmol/L (21-32); CHLORIDE 112 mmol/L (98-107); CREATININE 1.8 mg/dL (0.6-1.3); GLUCOSE 106 mg/dL (74-106); POTASSIUM 3.3 mmol/L (3.5-5.1); SODIUM SERUM 147 mmol/L (136-145); UREA NITROGEN, BLOOD 21 mg/dL (7-18)
--- NOTE | 2022-07-08 07:46 | NUR ---
GOT REPORT FROM THE NIGHT NURSE, PT IS SLEEPING, NO SOB LOOKS COMFORTABLE. [id number]
--- NOTE | 2022-07-08 07:47 | NUR ---
PATIENT HAS BEEN SCREENED AND CATEGORIZED LOW NUTRITION RISK. PATIENT WILL BE SEEN WITHIN 7 DAYS OF ADMISSION. 07/14/[address]
[2022-07-08 08:00] VITALS: BP 150/77
[2022-07-08] MEDS ORDERED: PANTOPRAZOLE 40 MG TABEC PO SCH (09:00)
[2022-07-08 12:00] VITALS: BP 150/77
--- NOTE | 2022-07-08 12:31 | NUR ---
PHYSICAL THERAPY CO-SIGN The Physical Therapy Progress Notes documented by Devops Solutions Architect have been reviewed. Reviewed/Co-Signed by: Christine Dumont Documentation Done by:ESAU HO PTA Addendum: 07/08/22 at 1232 by Christine Dumont PT Amended: Links added.
--- NOTE | 2022-07-08 16:45 | NUR ---
PT DISCHARGED, DISCHARGE INSTRUCTION GIVEN, IV AND ID BAND REMOVED, PT LEFT WITH TRANSPORTER.[id number]
== END 2022-07-08 16:45 | DRG 640 ==
LOC: MED 19:18 → MMU 07-07 17:32 → MTU 07-07 20:31
PROVIDERS: ADMIT Hospitalist; ATTEND Hospitalist
DX: E86.0 Dehydration (principal); N17.0 Acute kidney failure with tubular necrosis; E44.0 Moderate protein-calorie malnutrition; Z91.81 History of falling; E11.9 Type 2 diabetes mellitus without complications; K21.9 Gastro-esophageal reflux disease without esophagitis; I10 Essential (primary) hypertension; S80.212A Abrasion, left knee, initial encounter; S80.211A Abrasion, right knee, initial encounter; W06.XXXA Fall from bed, initial encounter; F32.A Depression, unspecified; F41.9 Anxiety disorder, unspecified; E87.0 Hyperosmolality and hypernatremia; D63.1 Anemia in chronic kidney disease; Z20.822 Contact with and (suspected) exposure to COVID-19; E78.5 Hyperlipidemia, unspecified; Y93.89 Activity, other specified; Y92.89 Other specified places as the place of occurrence of the external cause; Y99.8 Other external cause status; Z68.27 Body mass index [BMI] 27.0-27.9, adult
CPT/HCPCS: 36415; 70450; 71045; 72125; 73502; 80048; 80053; 83605; 83690; 83735; 84100; 84484; 85025; 87040; 87081; 87086; 93005; 96360; 97110; 97116; 97163-GP; 97530; 99285